=== PATIENT | female | born 1995 | race Caucasian/White ===

== ENCOUNTER 2023-03-09 22:04 | Emergency (ER) | payer SELFPAY ==
--- OUTSIDE RECORDS SUMMARY | 2023-03-09 22:07 | XMS REPORT | Continuity of Care Document ---
:1995 Author Organization [facility] t Address 1200 [facility] [address] [place] [id number] Care Team Providers Name Role Phone Juliana Knight Primary Care Physician [phone] KENYA RAMIREZ Attending Clinician Unavailable KENYA RAMIREZ Attending Clinician Unavailable Doctor Unassigned, [place] Attending Clinician Unavailable JULIANA HARRELL Attending Clinician Unavailable Yojana Ornelas Attending Clinician Unavailable Valentín Garcia DO Attending Clinician Zulema Dhali[facility] Attending Clinician Unavailable James Herrera MD Attending Clinician JAMES HERRERA Attending Clinician Unavailable Physician, No Primary or Family Admitting Clinician Unavaila ble Payers Payer Name Policy Type Policy Number Effective Date Expiration Date S tyrese BCBS OF [id number] [facility] [place]BS OF [place] [id number] 2021 00:00:00 Problems Condition Condition Condition Status Onset Resolution Last Treating Co mments Source Name Details Category Date Date Treatment Clinician Date Vaginal Vaginal Disease Active 2021-11 Univers bleeding bleeding 11-16 ity of 00:00: [place] 00 [facility] Unprotecte Unprotecte Disease Active 2021-11 U nivers d sexual d sexual 11-16 [place] [facility] Vaginal Vaginal Disease Active 2021-11 Univers discharge discharge 11-16 ity of 00:00: [place] 00 [facility] Screening Screening Disease Active 2021-11 Uni vers declined declined 11-16 [place] [facility] Morbid Morbid Disease Active Univers obesity obesity 17 [place] of [place] body [place] mass [place] mass index 00 Me dical of of Branch 40.0-49.9 40.0-49.9 Morbid Morbid Disease Active Univers obesity obesity 717 [place] of with body [place] mass index mass index 00 Me dical of of Branch 40.0-49.9 40.0-49.9 Allergies, Adverse Reactions, Alerts Allergy Allergy Status Severity Reaction(s) Onset Inactive Treating Comm ents Source Name Type Date Date Clinician No Known DA Active U [facility] Allergie -24 [place] [facility] 00:[facility]: d 00 [facility] No Known DA Active U [facility] Allergie 7-24 [place] 00:00: d 00 Medical Buna NO KNOWN Drug Active Univers ALLERGIE Class ity of S [facility] Social History Social Habit Start Date Stop Date Quantity Comments Source Exposure to 2022-09-06 2022-09-16 Not sure University SARS-CoV-2 00:00:00 12:52:00 [facility] (event) [place] Alcohol intake 2022-09-16 2022-09-16 Current drinker of Un iversity of 00:00:00 00:00:00 alcohol (finding) [facility] edical [place] Tobacco use and 2022-09-16 2022-09-16 Smokeless tobacco Un iversity of exposure 00:00:00 00:00:00 non-user [facility] Alcohol Comment 2020-05-24 2020-05-24 occasional Universit y of 00:00:00 00:00:00 [facility] Sex Assigned At [birth year] Universit y of 00:00:00 00:00:00 [place] [facility] Smoking Status Start Date Stop Date Source Never smoked tobacco [facility] Medications Ordered Filled Start Stop Current Ordering Indication Dosage Frequency Signature Comments Components Source Medication Medication Date Date Medication? Clinician (SIG) Name Name metroNIDAZO 2020-0 Yes 500mg Take 500 U nivers LE 500 mg 7-17 mg by ity of tablet 16:09: mouth [place] 37 every 8 Medical (eight) Branch hours. doxycycline 2020-0 Yes 100mg Take 100 U nivers 100 mg 7-17 mg by ity of capsule 16:09: mouth 2 [place] 37 (two) Medical times Branch daily. metroNIDAZO 2020-0 Yes 500mg Take 500 U nivers LE 500 mg 7-17 mg by ity of tablet 16:09: mouth [place] 37 every 8 Medical (eight) Branch hours. doxycycline 2020-0 Yes 100mg Take 100 U nivers 100 mg 7-17 mg by ity of capsule 16:09: mouth 2 [place] [address] (two) Medical times Branch daily. metroNIDAZO 2020-0 Yes 500mg Take 500 U nivers LE 500 mg 7-17 mg by ity of tablet 16:09: mouth [place] 37 every 8 Medical (eight) Branch hours. doxycycline 2020-0 Yes 100mg Take 100 U nivers 100 mg 7-17 mg by ity of capsule 16:09: mouth 2 [place] 37 (two) Medical times Branch daily. metroNIDAZO 2020-0 Yes 500mg Take 500 U nivers LE 500 mg 7-17 mg by ity of tablet 16:09: mouth [place] 37 every 8 Medical (eight) Branch hours. doxycycline 2020-0 Yes 100mg Take 100 U nivers 100 mg 7-17 mg by ity of capsule 16:09: mouth 2 [place] [address] (two) Medical times Branch daily. metroNIDAZO 2020-0 Yes 500mg Take 500 U nivers LE 500 mg 7-17 mg by ity of tablet 16:09: mouth [place] 37 every 8 Medical (eight) Branch hours. doxycycline 2020-0 Yes 100mg Take 100 U nivers 100 mg 7-17 mg by ity of capsule 16:09: mouth 2 [place] 37 (two) Medical times Branch daily. metroNIDAZO 2020-0 Yes 500mg Take 500 U nivers LE 500 mg 7-17 mg by ity of tablet 16:09: mouth [place] 37 every 8 Medical (eight) Branch hours. doxycycline 2020-0 Yes 100mg Take 100 U nivers 100 mg 7-17 mg by ity of capsule 16:09: mouth 2 [place] 37 (two) Medical times Branch daily. metroNIDAZO 2020-0 Yes 500mg Take 500 U nivers LE 500 mg 7-17 mg by ity of tablet 16:09: mouth [place] 37 every 8 Medical (eight) Branch hours. doxycycline 2020-0 Yes 100mg Take 100 U nivers 100 mg 7-17 mg by ity of capsule 16:09: mouth 2 [place] 37 (two) Medical times Branch daily. metroNIDAZO 2020-0 Yes 500mg Take 500 U nivers LE 500 mg 7-17 mg by ity of tablet 16:09: mouth [place] 37 every 8 Medical (eight) Branch hours. doxycycline 2020-0 Yes 100mg Take 100 U nivers 100 mg 7-17 mg by ity of capsule 16:09: mouth 2 [place] [address] (two) Medical times Branch daily. metroNIDAZO 2020-0 Yes 500mg Take 500 U nivers LE 500 mg 7-17 mg by ity of tablet 16:09: mouth [place] 37 every 8 Medical (eight) Branch hours. doxycycline 2020-0 Yes 100mg Take 100 U nivers 100 mg 7-17 mg by ity of capsule 16:09: mouth [address] [place] [address] (two) Medical times Branch daily. metroNIDAZO 2020-0 Yes 500mg Take 500 U nivers LE 500 mg 7-17 mg by ity of tablet 16:09: mouth [place] 37 every 8 Medical (eight) Branch hours. doxycycline 2020-0 Yes 100mg Take 100 U nivers 100 mg 7-17 mg by ity of capsule 16:09: mouth [address] [place] [address] (two) Medical times Branch daily. doxycycline 2020-0 Yes 100mg Take 100 U nivers 100 mg 7-17 mg by ity of capsule 11:09: mouth 2 [place] [address] (two) Medical times Branch daily. metroNIDAZO 2020-0 Yes 500mg Take 500 U nivers LE 500 mg 7-17 mg by ity of tablet 11:09: mouth [place] 37 every 8 Medical (eight) Branch hours. doxycycline 2020-0 Yes 100mg Take 100 U nivers 100 mg 7-17 mg by ity of capsule 11:09: mouth 2 [place] 37 (two) Medical times Branch daily. metroNIDAZO 2020-0 Yes 500mg Take 500 U nivers LE 500 mg 7-17 mg by ity of tablet 11:09: mouth [place] 37 every 8 Medical (eight) Branch hours. doxycycline 2020-0 Yes 100mg Take 100 U nivers 100 mg 7-17 mg by ity of capsule 11:09: mouth 2 37 (two) Medical times Branch daily. metroNIDAZO 2020-0 Yes 500mg Take 500 U nivers LE 500 mg 7-17 mg by ity of tablet 11:09: mouth [place] 37 every 8 Medical (eight) Branch hours. doxycycline 2020-0 Yes 100mg Take 100 U nivers 100 mg 7-17 mg by ity of capsule 11:09: mouth 2 37 (two) Medical times Branch daily. metroNIDAZO 2020-0 Yes 500mg Take 500 U nivers LE 500 mg 7-17 mg by ity of tablet 11:09: mouth [place] 37 every 8 Medical (eight) Branch hours. metroNIDAZO 2020-0 Yes [id number] 500mg Take 1 Univers LE 500 mg 7-17 tablet by ity o f tablet 00:00: mouth 2 00 (two) Medical times Branch daily. metroNIDAZO 2020-0 Yes [id number] 500mg Take 1 Univers LE 500 mg 7-17 tablet by ity o f tablet 00:00: mouth 2 (two) Medical times Branch daily. metroNIDAZO 2020-0 Yes [id number] 500mg Take 1 Univers LE 500 mg 7-17 tablet by ity o f tablet 00:00: mouth 2 (two) Medical times Branch daily. metroNIDAZO 2020-0 Yes [id number] 500mg Take 1 Univers LE 500 mg 7-17 tablet by ity o f tablet 00:00: mouth 2 00 (two) Medical times Branch daily. metroNIDAZO 2020-0 Yes [id number] 500mg Take 1 Univers LE 500 mg 7-17 tablet by ity o f tablet 00:00: mouth 2 00 (two) Medical times Branch daily. metroNIDAZO 2020-0 Yes [id number] 500mg Take 1 Univers LE 500 mg 7-17 tablet by ity o f tablet 00:00: mouth 2 [place] 00 (two) Medical times Branch daily. metroNIDAZO 2020-0 Yes [id number] 500mg Take 1 Univers LE 500 mg 7-17 tablet by ity o f tablet 00:00: mouth 2 [place] 00 (two) Medical times Branch daily. metroNIDAZO 2020-0 Yes [id number] 500mg Take 1 Univers LE 500 mg 7-17 tablet by ity o f tablet 00:00: mouth 2 [place] 00 (two) Medical times Branch daily. metroNIDAZO 2020-0 Yes [id number] 500mg Take 1 Univers LE 500 mg 7-17 tablet by ity o f tablet 00:00: mouth 2 [place] 00 (two) Medical times Branch daily. metroNIDAZO 2020-0 Yes [id number] 500mg Take 1 Univers LE 500 mg 7-17 tablet by ity o f tablet 00:00: mouth 2 [place] 00 (two) Medical times Branch daily. metroNIDAZO 2020-0 Yes [id number] 500mg Take 1 Univers LE 500 mg 7-17 tablet by ity o f tablet 00:00: mouth 2 00 (two) Medical times Branch daily. metroNIDAZO 2020-0 Yes [id number] 500mg Take 1 Univers LE 500 mg 7-17 tablet by ity o f tablet 00:00: mouth 2 00 (two) Medical times Branch daily. metroNIDAZO 2020-0 Yes [id number] 500mg Take 1 Univers LE 500 mg 7-17 tablet by ity o f tablet 00:00: mouth 2 00 (two) Medical times Branch daily. metroNIDAZO 2020-0 Yes [id number] 500mg Take 1 Univers LE 500 mg 7-17 tablet by ity o f tablet 00:00: mouth 2 00 (two) Medical times Branch daily. acetaminoph Yes 1{tbl} Take 1 Un [place] en-codeine 9-11 tablet by ity of (TYLENOL-CO 00:00: mouth [place] DEINE #3) 00 every 6 Medical 300-30 mg (six) Branch tablet hours as needed for Pain (scale 4-6) (for cough). acetaminoph Yes 1{tbl} Take 1 Un [place] en-codeine 9-11 tablet by ity of (TYLENOL-CO 00:00: mouth [place] DEINE #3) 00 every 6 Medical 300-30 mg (six) Branch tablet hours as needed for Pain (scale 4-6) (for cough). acetaminoph Yes 1{tbl} Take 1 Un [place] en-codeine 9-11 tablet by ity of (TYLENOL-CO 00:00: mouth [place] DEINE #3) 00 every 6 Medical 300-30 mg (six) Branch tablet hours as needed for Pain (scale 4-6) (for cough). acetaminoph Yes 1{tbl} Take 1 Un [place] en-codeine 9-11 tablet by ity of (TYLENOL-CO 00:00: mouth [place] DEINE #3) 00 every 6 Medical 300-30 mg (six) Branch tablet hours as needed for Pain (scale 4-6) (for cough). acetaminoph Yes 1{tbl} Take 1 Un [place] en-codeine 9-11 tablet by ity of (TYLENOL-CO 00:00: mouth [place] DEINE #3) 00 every 6 Medical 300-30 mg (six) Branch tablet hours as needed for Pain (scale 4-6) (for cough). acetaminoph Yes 1{tbl} Take 1 Un [place] en-codeine 9-11 tablet by ity of (TYLENOL-CO 00:00: mouth [place] DEINE #3) 00 every 6 Medical 300-30 mg (six) Branch tablet hours as needed for Pain (scale 4-6) (for cough). acetaminoph Yes 1{tbl} Take 1 Un [place] en-codeine 9-11 tablet by ity of (TYLENOL-CO 00:00: mouth [place] DEINE #3) 00 every 6 Medical 300-30 mg (six) Branch tablet hours as needed for Pain (scale 4-6) (for cough). acetaminoph Yes 1{tbl} Take 1 Un [place] en-codeine 9-11 tablet by ity of (TYLENOL-CO 00:00: mouth [place] DEINE #3) 00 every 6 Medical 300-30 mg (six) Branch tablet hours as needed for Pain (scale 4-6) (for cough). acetaminoph Yes 1{tbl} Take 1 Un [place] en-codeine 9-11 tablet by ity of (TYLENOL-CO 00:00: mouth [place] DEINE #3) 00 every 6 Medical 300-30 mg (six) Branch tablet hours as needed for Pain (scale 4-6) (for cough). acetaminoph Yes 1{tbl} Take 1 Un [place] en-codeine 9-11 tablet by ity of (TYLENOL-CO 00:00: mouth [place] DEINE #3) 00 every 6 Medical 300-30 mg (six) Branch tablet hours as needed for Pain (scale 4-6) (for cough). acetaminoph Yes 1{tbl} Take 1 Un [place] en-codeine 9-11 tablet by ity of (TYLENOL-CO 00:00: mouth [place] DEINE #3) 00 every 6 Medical 300-30 mg (six) Branch tablet hours as needed for Pain (scale 4-6) (for cough). acetaminoph Yes 1{tbl} Take 1 Un [place] en-codeine 9-11 tablet by ity of (TYLENOL-CO 00:00: mouth [place] DEINE #3) 00 every 6 Medical 300-30 mg (six) Branch tablet hours as needed for Pain (scale 4-6) (for cough). acetaminoph Yes 1{tbl} Take 1 Un [place] en-codeine 9-11 tablet by ity of (TYLENOL-CO 00:00: mouth [place] DEINE #3) 00 every 6 Medical 300-30 mg (six) Branch tablet hours as needed for Pain (scale 4-6) (for cough). acetaminoph Yes 1{tbl} Take 1 Un [place] en-codeine 9-11 tablet by ity of (TYLENOL-CO 00:00: mouth [place] DEINE #3) 00 every 6 Medical 300-30 mg (six) Branch tablet hours as needed for Pain (scale 4-6) (for cough). Vital Signs Vital Name Observation Time Observation Value Comments Source Systolic blood 2022-09-16 19:24:00 101 mm[Hg[facility] Diastolic blood 2022-09-16 19:24:00 68 mm[Hg] Unive [facility] Heart rate 2022-09-16 19:24:00 93 /min [facility] Body temperature 2022-09-16 19:24:00 36.78 Lakshmi [facility] Respiratory rate 2022-09-16 19:24:00 16 /min [facility] Body height 2022-09-16 19:24:00 175.3 cm [facility] Body weight 2022-09-16 19:24:00 119.84 kg Universi ty [facility] BMI 2022-09-16 19:24:00 39.02 kg/m2 Universi [facility] Oxygen saturation in 2022-09-16 19:24:00 97 /min [facility] Arterial blood by [facility] Pulse oximetry Branch Systolic blood 2020-05-24 16:08:00 133 mm[Hg] Univer sity of pressure [facility] Diastolic blood 2020-05-24 16:08:00 79 mm[Hg] [facility] 2020-05-24 16:08:00 95 /min Universi ty [facility] Body temperature 2020-05-24 16:08:00 36.94 Lakshmi [facility] Body height 2020-05-24 16:08:00 175.3 cm Universi [facility] Body weight 2020-05-24 16:08:00 123.378 kg Universi ty [facility] BMI 2020-05-24 16:08:00 40.17 kg/m2 [facility] Procedures Procedure Date / Time Performing Clinician Source Performed ASSIGNMENT OF BENEFITS 2022-09-16 18:55:59 Doctor Unassigned, No [facility] Name [facility] HEPATITIS B SURFACE 2020-05-24 16:54:00 James Herrera [facility] ANTIGEN [facility] HCV ANTIBODY 2020-05-24 16:54:00 James Herrera [facility] HSV 1 AND 2 2020-05-24 16:54:00 James Herrera [facility] GLYCOPROTEIN G IGG Medical Bran h HIV 1/2 AG-AB WITH 2020-05-24 16:54:00 James Herrera [facility] REFLEX [facility] GALV ONLY - SYPHILIS 2020-05-24 16:54:00 [facility] Branch GC & CHLAMYDIA 2020-05-24 16:38:00 James Herrera [facility] AMPLIFIED ASSAY [facility] GALV ONLY - VAGINAL 2020-05-24 16:38:00 James Herrera [facility] PATHOGENS BY DNA PROBE Medical B ahmet Plan of Care Planned Activity Planned Date Details Comments Source Goal Plan of Care Note [code = 50991-6] Encounters Start End Encounter Admission Attending Care Care Encounter Source Date/Time Date/Time Type Type Clinicians Facility Department ID 2023-01-02 Outpatient [facility] [id number] [place] 13:39:13 [id number] [facility] 2021-08-24 Outpatient [facility] [id number] [place] 15:49:16 [id number] [facility] 2022-12-31 2022-12-31 Outpatient R KENYA RAMIREZ [facility] B [id number] Univers 15:00:00 15:00:00 KENYA RAMIREZ [facility] 2022-09-22 2022-09-22 [address] [facility] [id number] Univers 00:00:00 00:00:00 [place] [id number] it y of PEDIATRIC [place]2.[place] [facility] [id number] [address] 2022-09-16 2022-09-16 [facility] [id number] Univers 13:00:00 13:40:49 Visit [place] [id number] it y of WOMEN'S 4.2.7.2.686 [facility] [id number] [place] [address] Branch 2022-09-16 2022-09-16 Outpatient R KENYA RAMIREZ [facility] B [id number] Univers 13:00:00 13:40:49 KENYA RAMIREZ [facility] 2022-09-16 2022-09-16 Orders Doctor JORDAN [id number] Univers 00:00:00 00:00:00 Only Unassigned, MIKKI [id number] ity [address] [place] [facility] 4.2.7.2.686 [place] [id number] [place] [address] Branch 2022-08-25 2022-08-25 Outpatient THAO OSUNA [id number] [place] 18:15:28 18:15:28 1018 F Julian 2022-08-25 2022-08-25 Outpatient [id number] 00:00:00 00:00:00 Visit [id number] 2022-06-09 2022-06-09 Outpatient R SHARRI [facility] [id number] Univers 08:30:00 08:30:00 JULIANA lerma [facility] 2022-02-18 2022-02-18 Outpatient R KENYA RAMIREZ [facility] B [id number] Univers 15:00:00 15:00:00 KENYA RAMIREZ [facility] 2021-05-31 2021-05-31 Emergency EM Johnson [facility] [id number] [facility] 15:31:00 15:43:00 Yojana 27 [facility] 2021-01-28 2021-01-28 [facility] [id number] 00:00:00 00:00:00 Outreach Valentín PRIMARY [id number] [place] [facility] 4.2.7.2.686 PAVILLION [id number] [facility] 2021-01-28 2021-01-28 [facility] [id number] Univers 00:00:00 00:00:00 Outreach Valentín PRIMARY [id number] i ty of [place].686 [place] [id number] [address] 2020-05-24 2020-06-04 [place] [facility] Draw, [facility] [id number] [id number] 11:37:01 16:08:07 Visit [facility] [id number] [place] 4.2.7.2.686 [place] [id number] [place] [address] Office Building 2020-05-24 2020-06-04 [place] [facility] Draw, [facility] 1.2.8 [id number] [facility] 11:37:01 16:08:07 Visit James Herrerah Health 350.1.13. 10 ity of [place].2.686 [place] [id number] [address] Office Building 2020-05-28 2020-05-28 Telephone Javier [facility] [id number] Univers 00:00:00 00:00:00 [facility] [id number] it y of [place].2.686 [place] [id number] [address] Office Building 2020-05-24 2020-05-24 Office [facility] [id number] Univers 10:52:52 11:39:01 Visit [facility] [id number] it y of [place].2.[place] [id number] [address] Office Building 2020-05-24 2020-05-24 [facility] [id number] Univers 10:45:00 10:45:00 [facility] Results Test Description Test Time Test Comments Results Result Comments Source GC & CHLAMYDIA AMPLIFIED ASSAY 2020-05-27 19:01:00 Test Item Value Reference Range Interpretation Comme nts C. trachomatis Nucleic Acid (test code = 10219-3) Negative Nega tive N. gonorrhoeae Nucleic Acid (test code = 03192-1) Negative Nega tive Lab Interpretation (test code = 78893-5) [facility] [id number] 16:43:00 Test Item Value Reference Range Interpretation Comments Syphilis IgG/IgM (test Non-reactive Non-reactive code = 92239-5) PATRICIO (test code = PATRICIO) Non-reactive - No serologic evidence of T. pallidum infection. Cannot exclude incubating or early syphilis. Submit a second specimen in 2-4 weeks if syphilis is clinically suspected. Equivocal - Further testing to follow. Reactive - Further testing to follow. Lab Interpretation (test Normal code = 23798-1) [facility] AND 2 GLYCOPROTEIN G [id number] 16:42:00 Test Item Value Reference Range Interpretation Comments HSV I IgG (test code Negative Negative = 7510049728) HSV II IgG (test code Negative Negative = 9450348906) PATRICIO (test code = PATRICIO) Positive - IgG antibody to HSV 1 and/or HSV 2 detected.Negative - No HSV 1 and/or HSV 2 antibody detected.Equivocal - A second sample should be sent. [facility] - VAGINAL PATHOGENS BY DNA PROBE 2020-05-25 20:30:00 Test Item Value Reference Range Interpretation Comments Trichomonas vaginalis Negative Negative (test code = 8095568141) Gardnerella vaginalis Positive Negative A The pr esence of (test code = 4251890980) Gar dnerella vaginalis although sugges tive, is not diagnost ic of Bacterial Vagin osis. Mercedes species (test Negative Negative code = 0684999967) Lab Interpretation (test Abnormal code = 61393-7) [facility] [id number] 21:42:00 Test Item Value Reference Range Interpretation Comments HCV Ab (test code = 20636-5) Negative HCV Semi-Quantitative (test code = 38624-5) [facility] AG-AB WITH [id number] 19:19:00 Test Item Value Reference Range Interpretation Comments HIV Negative Negative Semi-quantitative (test code = 35029-9) PATRICIO (test code = Non-reactive for HIV-1 PATRICIO) antigen and HIV-1/HIV-2 antibodies. ?No laboratory evidence of HIV infection. ?Repeat in 2-4 weeks if acute HIV infection is suspected. [facility] SURFACE [id number] 18:58:00 Test Item Value Reference Range Interpretation Comments HBsAg Semi-Quantitative (test code = Negative Negative 5195-3) [facility]
[2023-03-09] MEDS ORDERED: BUPIVACAINE 0.5% PF 10 ML VIAL ONE (22:20)
--- NOTE | 2023-03-09 23:07 | ER ---
Nurse's Notes [facility] Name: Gretchen Andrew Age: 28 yrs Sex: Female : 1995 Arrival Date: 03/09/2023 Time: 22:04 Bed 12 Private MD: Diagnosis: Fingertip Avulsion Presentation: 03/09 22:50 Chief complaint: Patient states: "I cut my finger on one of those things you cut your vc1 vegetables with.". Coronavirus screen: Vaccine status: Patient reports being unvaccinated. Client denies travel out of the [place] in the last 14 days. At this time, the client does not indicate any symptoms associated with coronavirus-19. Ebola Screen: Patient negative for fever greater than or equal to 101.5 degrees Fahrenheit, and additional compatible Ebola Virus Disease symptoms Patient denies exposure to infectious person. Patient denies travel to an Ebola-affected area in the 21 days before illness onset. No symptoms or risks identified at this time. Risk Assessment: Do you want to hurt yourself or someone else? Patient reports no desire to harm self or others. Onset of symptoms was March 09, 2023 at 21:50. 22:50 Method Of Arrival: Ambulatory vc1 22:50 Acuity: MARNIE 4 vc1 22:50 Initial Sepsis Screen: Does the patient meet any 2 criteria? No. Patient's initial vc1 sepsis screen is negative. Does the patient have a suspected source of infection? No. Patient's initial sepsis screen is negative. Triage Assessment: 23:52 General: Appears in no apparent distress. comfortable, Behavior is calm, cooperative, vc1 appropriate for age. Pain: Complains of pain in right index fingernail Pain does not radiate. EENT: No deficits noted. No signs and/or symptoms were reported regarding the EENT system. Neuro: Level of Consciousness is awake, alert, obeys commands, Oriented to person, place, time, situation, Appropriate for age. Cardiovascular: No deficits noted. Respiratory: Airway is patent Respiratory effort is even, unlabored, Respiratory pattern is regular, symmetrical. GI: No deficits noted. No signs and/or symptoms were reported involving the gastrointestinal system. : No deficits noted. No signs and/or symptoms were reported regarding the genitourinary system. Derm: No deficits noted. No signs and/or symptoms reported regarding the dermatologic system. Musculoskeletal: No deficits noted. No signs and/or symptoms reported regarding the musculoskeletal system. 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 Last tetanus immunization: unknown. - Social history:: Smoking status: Patient reports the use of cigarette tobacco products, denies chronic smoking, but will smoke occasionally, Reported history of juuling and/or vaping. Screenin:52 Abuse screen: Denies threats or abuse. Nutritional screening: On. Tuberculosis vc1 screening: No symptoms or risk factors identified. 23:55 [facility] ED Fall Risk Assessment (Adult) History of falling in the last 3 months, vc1 including since admission No falls in past 3 months (0 pts) Confusion or Disorientation No (0 pts) Intoxicated or Sedated No (0 pts) Impaired Gait No (0 pts) Mobility Assist Device Used No (0 pt) Altered Elimination No (0 pt) Score/Fall Risk Level 0 - 2 = Low Risk Oriented to surroundings, Maintained a safe environment, Educated pt \\T\\ family on fall prevention, incl call for assistance when getting out of bed. Vital Signs: 22:50 Weight 108.86 kg; Height 5 ft. 9 in. ; Pain 8/10; vc1 22:53 BP 105 / 89; Pulse 68; Temp 98.5; Pulse Ox 100% ; vc1 22:50 Body Mass Index 35.44 (108.86 kg, 175.26 cm) vc1 22:50 Pain Scale: Adult vc1 ED Course: 22:06 Patient arrived in ED. mr 22:[address] PA is PHCP. jmm 22:07 Ravinder Barker MD is Attending Physician. jmm 22:51 Triage completed. vc1 22:52 Arm band placed on left wrist. vc1 23:06 Jackson Kumar MD is Referral Physician. jmm 23:54 No provider procedures requiring assistance completed. Patient did not have IV access vc1 during this emergency room visit. Administered Medications: 22:55 Drug: Bupivacaine Infiltration (0.5 %) 10 ml Volume: 10 ml; Route: Infiltration; vc1 23:52 Drug: Tetanus-Diphtheria Toxoid IM Adult 0.5 ml {Oncology Technician: [employer]. Exp: cg 05/27/2023. Lot #: [id number]. } Route: IM; Site: left deltoid; Medication: 22:53 VIS not applicable for this client. vc1 Outcome: 23:06 Discharge ordered by . carlitos 23:55 Discharged to home ambulatory. vc1 23:55 Condition: good 23:55 Discharge instructions given to patient, Instructed on discharge instructions, follow up and referral plans. medication usage, Demonstrated understanding of instructions, follow-up care, medications, Prescriptions given X 1. 23:56 Patient left the ED. vc1 Signatures: Benedicto Lane PA PA jmm Rivera, Mary mr Garcia, Cindy, RN RN Tania Norton RN RN vc1
--- NOTE | 2023-03-09 23:07 | EDPHYS ---
Physician Documentation [facility] Name: Gretchen Andrew Age: 28 yrs Sex: Female : 1995 Arrival Date: 03/09/2023 Time: 22:04 Bed 12 Private MD: ED Physician Ravinder Barker HPI: 03/09 22:08 This 28 yrs old Female presents to ER via Ambulatory with complaints of Finger jmm lacceration. 22:08 Onset: The symptoms/episode began/occurred acutely. Is a 28-year-old female with no jmm chronic medical conditions presents emerged department with a laceration to her right second index finger. Patient states she accidentally sliced it with a vegetable slicer. Unsure on tetanus immunization status. 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 Last tetanus immunization: unknown. - Social history:: Smoking status: Patient reports the use of cigarette tobacco products, denies chronic smoking, but will smoke occasionally, Reported history of juuling and/or vaping. ROS: 22:08 Constitutional: Negative for fever, chills, and weight loss, Cardiovascular: Negative jmm for chest pain, palpitations, and edema, Respiratory: Negative for shortness of breath, cough, wheezing, and pleuritic chest pain. 22:08 Skin: Positive for laceration(s). 22:08 All other systems are negative. Exam: 22:08 Constitutional: This is a well developed, well nourished patient who is awake, alert, jmm and in no acute distress. Head/Face: atraumatic. Eyes: EOMI, no conjunctival erythema appreciated ENT: Moist Mucus Membranes Neck: Trachea midline, Supple Chest/axilla: Normal chest wall appearance and motion. Cardiovascular: Regular rate and rhythm. No edema appreciated Respiratory: Normal respirations, no respiratory distress appreciated Abdomen/GI: Non distended Back: Normal ROM 22:08 Skin: Avulsion noted to the tip of the right second finger. 22:08 Neuro: Orientation: is normal, Mentation: is normal, Memory: is normal. 22:08 Psych: Behavior/mood is pleasant, cooperative. Vital Signs: 22:50 Weight 108.86 kg; Height 5 ft. 9 in. ; Pain 8/10; vc1 22:53 BP 105 / 89; Pulse 68; Temp 98.5; Pulse Ox 100% ; vc1 22:50 Body Mass Index 35.44 (108.86 kg, 175.26 cm) vc1 22:50 Pain Scale: Adult vc1 MDM: 22:08 Patient medically screened. jmm 23:43 Differential diagnosis: Avulsion. Data reviewed: vital signs, nurses notes. I melissam considered the following discharge prescriptions or medication management in the emergency department Medications were administered in the Emergency Department. See MAR. Counseling: I had a detailed discussion with the patient and/or guardian regarding: the historical points, exam findings, and any diagnostic results supporting the discharge/admit diagnosis, the need for outpatient follow up, to return to the emergency department if symptoms worsen or persist or if there are any questions or concerns that arise at home. Administered Medications: 22:55 Drug: Bupivacaine Infiltration (0.5 %) 10 ml Volume: 10 ml; Route: Infiltration; vc1 23:52 Drug: Tetanus-Diphtheria Toxoid IM Adult 0.5 ml {[employer]: [employer]. Exp: cg 05/27/2023. Lot #: [id number]. } Route: IM; Site: left deltoid; Disposition: 03/10 04:48 Co-signature as Attending Physician, Ravinder Barekr MD I reviewed the patient's care rt provided by the Advanced Practice Provider and agree with the diagnosis and treatment plan. Disposition Summary: 03/09/23 23:06 Discharge Ordered Location: Home [facility] Condition: Stable [facility] Diagnosis - Fingertip Avulsion [facility] Followup: [facility] - With: Jackson Kumar MD - When: 1 week - Reason: Recheck today's complaints, Continuance of care, Re-evaluation by your physician Discharge Instructions: - Discharge Summary Sheet [facility] - Deep Skin Avulsion [facility] Forms: - Medication Reconciliation Form [facility] - Thank You Letter m - Antibiotic Education jmm - Prescription Opioid Use [facility] Prescriptions: - Cephalexin 500 mg Oral Capsule - take 1 capsule by ORAL route every 6 hours for 5 days; 20 capsule; Refills: 0, [facility] Product Selection Permitted Signatures: Benedicto Lane PA PA jmm Garcia, Cindy, RN RN cg Tania Norton RN RN vc1 Ravinder Barker MD MD rt
[2023-03-09] MEDS ORDERED: TETANUS & DIPHTHERIA TOX,ADULT 0.5 ML VIAL ONE (23:53)
[2023-03-10 00:55] VITALS: BP 105/89; TEMP 98.5; O2SAT 100
== END 2023-03-09 23:56 | disposition home or self-care (01) ==
LOC: ER 22:04
DX: S61.210A Laceration without foreign body of right index finger without damage to nail, initial encounter (principal); F17.210 Nicotine dependence, cigarettes, uncomplicated; Z23 Encounter for immunization
CPT/HCPCS: 90471; 90714; 99284

== ENCOUNTER 2024-11-06 07:28 | Emergency (ER) | payer OTHER ==
--- OUTSIDE RECORDS SUMMARY | 2024-11-06 07:31 | XMS REPORT | Continuity of Care Document ---
Author Name Unknown Address [address] [facility] [address] [place] [address] [facility] thconnect Address [address] [facility] [address] [place] [address] Care Team Providers Care Certified Midwife Name Role Phone [facility] Juliana JOHNSTON Primary Care Physician [phone] Gregory Yoder MD Attending Clinician GREGORY YODER Attending Clinician GREGORY Galaviz Attending Clinician Karina Luciano Attending Clinician Unavailable Karina SKINNER Attending Clinician Unavailable Karina Rick Attending Clinician [phone] PHYLLIS ZAMBRANO Attending Clinician Unavailab le PHYLLIS ZAMBRANO Attending Clinician Unavailab le Phyllis Parekh Attending Clinician [phone] Doctor Unassigned, [place] Attending Clinician U navailable 2, [facility] Attending Clinician Unavailable JADEN GUTIÉRREZ Attending Clinician Unavailable Jaden Boateng Attending Clinician AUSTIN BONILLA Attending Clinician Unavailable AUSTIN BONILLA Attending Clinician Unavailable DANNA SPENCE Attending Clinician Unavailable DANNA SPENCE Attending Clinician Unavailable BONNIE LEIGH Attending Clinician Unavailable Dulce JOHNSTON, Bonnie Attending Clinician [phone] Unknown, Attending Attending Clinician Unavailab le [email or web address]_S Attending Clinician Unavaila ble TRITSCHLER, CHERYAL Attending Clinician Unavaila ble TRITSCHLER, CHERYAL Attending Clinician Unavaila JULIANA Lama Attending Clinician Unavailable Yojana Ornelas Attending Clinician Unavail able Valentín Garcia DO Attending Clinician [phone] Draw, Clc[facility] Lab Attending Clinician Unavailruth Herrera MD, James Duron Attending Clinician [phone] JAMES HERRERA Attending Clinician Unavail able [email or web address]_S Admitting Clinician Unavaila ble Physician, No Primary or Family Admitting Clinic timothy Unavailable Payers Payer Name Policy Type Policy Number Effective Date Expirati on Date Source [facility]-Medical [id number] [facility] [id number] 2021 00:00:00 Problems Condition Name Condition Details Condition Category Status Onset Date Resolution Date Last Treatment Date Treating Clinician Comments Source Vaginal bleeding Vaginal bleeding Disease Active 2021-11 00:00: 00 General acute hospital Unprotecte d sexual intercours e Unprotecte d sexual intercours e Disease Active 2021-11 00:00: 00 General acute hospital Vaginal discharge Vaginal discharge Disease Active 2021-11 00:00: 00 General acute hospital Screening declined by patient Screening declined by patient Disease Active 2021-11 00:00: 00 General acute hospital Morbid obesity with body mass index of 40.0-49.9 Morbid obesity with body mass index of 40.0-49.9 Disease Active 05-24 00:00: 00 General acute hospital Morbid obesity with body mass index of 40.0-49.9 Morbid obesity with body mass index of 40.0-49.9 Disease Active 05-24 00:00: 00 General acute hospital Allergies, Adverse Reactions, Alerts Allergy Name Allergy Type Status Severity Reaction(s) Onset Date Inactive Date Treating Clinician Comments Source No Known Allergie s DA Active U 05-31 00:00: 00 [facility] No Known Allergie s DA Active U 05-31 00:00: 00 [facility] NO KNOWN ALLERGIE S Drug Class Active General acute hospital Social History Social Habit Start Date Stop Date Quantity Comments Source Gender identity [facility] History of Social function 2024-10-10 00:00:00 2024-10-10 00:00:00 [facility] Alcoholic beverage intake 2024-10-10 00:00:00 2024-10-10 00:00:00 Current drinker of alcohol (finding) [facility] Alcohol intake 2024-01-18 00:00:00 2024-01-18 00:00:00 Current drinker of alcohol (finding) [facility] Exposure to SARS-CoV-2 (event) 2022-12-11 00:00:00 2022-12-21 16:26:00 Not sure [facility] Tobacco use and exposure 2022-09-16 00:00:00 2022-09-16 00:00:00 Smokeless tobacco non-user [facility] Alcohol Comment 2020-05-24 00:00:00 2020-05-24 00:00:00 occasional [facility] Sex assigned at 1995 00:00:00 1995 00:00:00 [facility] Smoking Status Start Date Stop Date Source Never smoked tobacco General acute hospital Medications Ordered Medication Name Filled Medication Name Start Date Stop Date Current Medication? Ordering Clinician Indication Dosage Frequency Signature (SIG) Comments Components Source docusate (COLACE) 100 mg capsule 2023-11 00:00: 00 Yes [id number] 100mg Take 1 capsule by mouth in the morning and 1 capsule in the evening. General acute hospital ibuprofen 800 mg tablet 2023-11 2 00:00: 00 Yes [id number] 800mg Take 1 tablet by mouth every 6 (six) hours as needed for Pain (scale 1-3) or Pain (scale 4-6). General acute hospital benzonatate 200 mg capsule 07-05 00:00: 00 Yes [id number] 200mg Take 1 capsule by mouth 3 (three) times daily as needed for Cough for up to 20 doses. General acute hospital ondansetron 4 mg disintegrat ing tablet 07-05 00:00: 00 Yes [id number] 4mg Take 1 tablet by mouth every 8 (eight) hours as needed for Nausea and Vomiting (N/V). General acute hospital benzonatate 100 mg capsule 07-02 00:00: 00 Yes [id number] 100mg Take 1 capsule by mouth 3 (three) times daily as needed for Cough. General acute hospital ondansetron 4 mg disintegrat ing tablet 07-02 00:00: 00 07-08 04:59 :00 No [id number] 4mg Take 1 tablet by mouth every 8 (eight) hours as needed for Nausea and Vomiting (N/V) for up to 5 days. General acute hospital valACYclovi r (VALTREX) 1 gram tablet 03-31 00:00: 00 Yes [id number] 1g Take 1 tablet by mouth in the morning and 1 tablet in the evening. General acute hospital fluticasone propionate 50 mcg/actuati on nasal spray 2022-11 00:00: 00 Yes [id number] 1{spray } Use 1 Chili in each nostril in the morning. General acute hospital benzonatate (TESSALON PERLES) 100 mg capsule 2022-11 00:00: 00 11-07 05:59 :00 No [id number] 100mg Take 1 capsule by mouth every 8 (eight) hours as needed for Cough for up to 7 days. General acute hospital metroNIDAZO LE (FLAGYL) 500 mg tablet 16 00:00: 00 Yes [id number] 500mg Take 1 tablet by mouth every 12 (twelve) hours. General acute hospital doxycycline 100 mg capsule 05-24 16:09: 37 Yes 100mg Take 100 mg by mouth 2 (two) times daily. General acute hospital metroNIDAZO LE 500 mg tablet 05-24 16:09: 37 Yes 500mg Take 500 mg by mouth every 8 (eight) hours. General acute hospital doxycycline 100 mg capsule 05-24 11:09: 37 Yes 100mg Take 100 mg by mouth 2 (two) times daily. General acute hospital metroNIDAZO LE 500 mg tablet 05-24 11:09: 37 Yes 500mg Take 500 mg by mouth every 8 (eight) hours. General acute hospital metroNIDAZO LE 500 mg tablet 05-24 00:00: 00 Yes [id number] 500mg Take 1 tablet by mouth 2 (two) times daily. General acute hospital acetaminoph en-codeine (TYLENOL-CO DEINE #3) 300-30 mg tablet 07-19 00:00: 00 Yes 1{tbl} Take 1 tablet by mouth every 6 (six) hours as needed for Pain (scale 4-6) (for cough). General acute hospital Vital Signs Vital Name Observation Time Observation Value Comments S addisnilsa Systolic blood pressure 2024-10-10 17:40:00 111 mm[Hg] [facility] Diastolic blood pressure 2024-10-10 17:40:00 75 mm[Hg] [facility] Heart rate 2024-10-10 17:40:00 75 /min [facility] Body temperature 2024-10-10 17:40:00 36.67 Lakshmi [facility] Respiratory rate 2024-10-10 17:40:00 18 /min [facility] Body height 2024-10-10 17:40:00 175.3 cm [facility] Body weight 2024-10-10 17:40:00 136.351 kg [facility] BMI 2024-10-10 17:40:00 44.39 kg/m2 [facility] Systolic blood pressure 2024-07-05 19:32:00 127 mm[Hg] [facility] Diastolic blood pressure 2024-07-05 19:32:00 97 mm[Hg] [facility] Heart rate 2024-07-05 19:32:00 100 /min Unive [facility] Body temperature 2024-07-05 19:32:00 37.39 Lakshmi [facility] Respiratory rate 2024-07-05 19:32:00 18 /min [facility] Body height 2024-07-05 19:32:00 175.3 cm [facility] Body weight 2024-07-05 19:32:00 131.543 kg [facility] BMI 2024-07-05 19:32:00 42.83 kg/m2 [facility] Oxygen saturation in Arterial blood by Pulse oximetry 2024-07-05 19:32:00 100 /min [facility] Systolic blood pressure 2024-07-03 02:46:00 135 mm[Hg] [facility] Diastolic blood pressure 2024-07-03 02:46:00 87 mm[Hg] [facility] Heart rate 2024-07-03 02:46:00 98 /min [facility] Body temperature 2024-07-03 02:46:00 37.39 Lakshmi [facility] Respiratory rate 2024-07-03 02:46:00 18 /min [facility] Body height 2024-07-03 02:46:00 175.3 cm [facility] Body weight 2024-07-03 02:46:00 131.543 kg [facility] BMI 2024-07-03 02:46:00 42.83 kg/m2 [facility] Oxygen saturation in Arterial blood by Pulse oximetry 2024-07-03 02:46:00 100 /min [facility] Systolic blood pressure 2024-03-31 18:46:00 118 mm[Hg] [facility] Diastolic blood pressure 2024-03-31 18:46:00 79 mm[Hg] [facility] Body temperature 2024-03-31 18:46:00 36.39 Lakshmi [facility] Body height 2024-03-31 18:46:00 175.3 cm [facility] Body weight 2024-03-31 18:46:00 127.461 kg [facility] BMI 2024-03-31 18:46:00 41.50 kg/m2 [facility] Systolic blood pressure 2024-03-29 02:49:38 131 mm[Hg] [facility] Diastolic blood pressure 2024-03-29 02:49:38 81 mm[Hg] [facility] Heart rate 2024-03-29 02:49:38 91 /min Unive [facility] Body temperature 2024-03-29 02:49:38 37.06 Lakshmi [facility] Respiratory rate 2024-03-29 02:49:38 20 /min [facility] Oxygen saturation in Arterial blood by Pulse oximetry 2024-03-29 02:49:38 97 /min [facility] Body height 2024-03-29 01:32:00 175.3 cm [facility] Body weight 2024-03-29 01:32:00 128.368 kg [facility] BMI 2024-03-29 01:32:00 41.79 kg/m2 [facility] Systolic blood pressure 2024-01-18 14:13:00 128 mm[Hg] [facility] Diastolic blood pressure 2024-01-18 14:13:00 80 mm[Hg] [facility] Heart rate 2024-01-18 14:13:00 80 /min Unive [facility] Body temperature 2024-01-18 14:13:00 36.89 Lakshmi [facility] Respiratory rate 2024-01-18 14:13:00 16 /min [facility] Body height 2024-01-18 14:13:00 175.3 cm [facility] Body weight 2024-01-18 14:13:00 128.368 kg [facility] BMI 2024-01-18 14:13:00 41.79 kg/m2 [facility] Oxygen saturation in Arterial blood by Pulse oximetry 2024-01-18 14:13:00 98 /min [facility] Systolic blood pressure 2023-10-31 01:17:00 114 mm[Hg] [facility] Diastolic blood pressure 2023-10-31 01:17:00 83 mm[Hg] [facility] Heart rate 2023-10-31 01:17:00 99 /min [facility] Body temperature 2023-10-31 01:17:00 37.28 Lakshmi [facility] Respiratory rate 2023-10-31 01:17:00 15 /min [facility] Body height 2023-10-31 01:17:00 175.3 cm [facility] Body weight 2023-10-31 01:17:00 122.074 kg [facility] BMI 2023-10-31 01:17:00 39.74 kg/m2 [facility] Oxygen saturation in Arterial blood by Pulse oximetry 2023-10-31 01:17:00 97 /min [facility] Systolic blood pressure 2023-07-22 14:53:00 111 mm[Hg] [facility] Diastolic blood pressure 2023-07-22 14:53:00 70 mm[Hg] [facility] Heart rate 2023-07-22 14:53:00 68 /min Unive [facility] Respiratory rate 2023-07-22 14:53:00 18 /min [facility] Body height 2023-07-22 14:53:00 175.3 cm [facility] Body weight 2023-07-22 14:53:00 116.121 kg [facility] BMI 2023-07-22 14:53:00 37.80 kg/m2 [facility] Systolic blood pressure 2022-09-16 19:24:00 101 mm[Hg] [facility] Diastolic blood pressure 2022-09-16 19:24:00 68 mm[Hg] [facility] Heart rate 2022-09-16 19:24:00 93 /min Unive [facility] Body temperature 2022-09-16 19:24:00 36.78 Lakshmi [facility] Respiratory rate 2022-09-16 19:24:00 16 /min [facility] Body height 2022-09-16 19:24:00 175.3 cm [facility] Body weight 2022-09-16 19:24:00 119.84 kg [facility] BMI 2022-09-16 19:24:00 39.02 kg/m2 [facility] Oxygen saturation in Arterial blood by Pulse oximetry 2022-09-16 19:24:00 97 /min [facility] Systolic blood pressure 2020-05-24 16:08:00 133 mm[Hg] [facility] Diastolic blood pressure 2020-05-24 16:08:00 79 mm[Hg] [facility] Heart rate 2020-05-24 16:08:00 95 /min [facility] Body temperature 2020-05-24 16:08:00 36.94 Lakshmi [facility] Body height 2020-05-24 16:08:00 175.3 cm [facility] Body weight 2020-05-24 16:08:00 123.378 kg [facility] BMI 2020-05-24 16:08:00 40.17 kg/m2 [facility] Procedures Procedure Date / Time Performed Performing Clinician Source URINALYSIS 2024-03-29 01:48:00 Jaden Gutiérrez [facility] RAPID STREP SCREEN FOR GROUP A 2024-03-29 01:48:00 Jaden Gutiérrez [facility] RAPID INFLUENZA A/B 2024-03-29 01:48:00 Therese Gutiérrez [facility] COVID-19 (ID NOW RAPID TESTING) 2024-03-29 01:48:00 Jaden Gutiérrez [facility] POCT SARS-COV-2 ANTIGEN (BINAX NOW) 2023-10-31 01:36:00 Bonnie Leigh [facility] POCT MOLECULAR FLU 2023-10-31 01:26:00 Unknown, Attend [facility] POCT MOLECULAR STREP 2023-10-31 01:23:00 Unknown, Atte anthonying [facility] CONSENT/REFUSAL FOR DIAGNOSIS AND TREATMENT 2023-10-31 01:12:02 Doctor Unassigned, [place] [facility] ASSIGNMENT OF BENEFITS 2023-10-31 01:11:19 Docjennifer r Unassigned, [place] [facility] PATIENT FINANCIAL POLICY 2023-07-22 14:38:56 Doctor Unassigned, [place] [facility] POCT URINALYSIS W/O SPECIFIC GRAVITY 2023-07-22 00:00:00 Gregory Yoder [facility] ASSIGNMENT OF BENEFITS 2022-09-16 18:55:59 Yessenia r Unassigned, [place] [facility] HEPATITIS B SURFACE ANTIGEN 2020-05-24 16:54:00 James Herrera [facility] HCV ANTIBODY 2020-05-24 16:54:00 James Herrera [facility] HSV 1 AND 2 GLYCOPROTEIN G IGG 2020-05-24 16:54:00 James Herrera [facility] HIV 1/2 AG-AB WITH REFLEX 2020-05-24 16:54:00 James Hrerera [facility] GALV ONLY - SYPHILIS IGG/IGM 2020-05-24 16:54:00 James Herrera [facility] GC & CHLAMYDIA AMPLIFIED ASSAY 2020-05-24 16:38:00 Becki Ramirez [facility] GALV ONLY - VAGINAL PATHOGENS BY DNA PROBE 2020-05-24 16:38:00 James Herrera [facility] Plan of Care Planned Activity Planned Date Details Comments Source Goal Plan of Care Note [code = 90927-2] Encounters Start Date/Time End Date/Time Encounter Type Admission Type Attending Clinicians Care Facility Care Department Encounter ID Source 2023-01-02 13:39:13 Outpatient [facility] [id number] [facility] 2021-08-24 15:49:16 Outpatient [facility] [id number] [facility] 2024-10-10 00:00:00 2024-10-10 12:22:44 Letter (Out) Monzon-Elvi s, [facility] 1.114 350.1.13.10 4.2.7.2.686 [id number] General acute hospital 2024-10-10 11:00:00 2024-10-10 12:21:44 Outpatient R SHAYLEE Horner, GREGORY SHAYLEE Horner, [facility] [id number] General acute hospital 2024-10-10 11:00:00 2024-10-10 12:21:44 Office Visit Ela Ferrissol [facility] 1.114 350.1.13.10 4.2.7.2.686 [id number] General acute hospital 2024-07-05 14:33:00 2024-07-05 15:14:00 Emergency X Karina SKINNER K [facility] [id number] General acute hospital 2024-07-05 14:33:00 2024-07-05 15:14:00 Emergency Karina Skinner [facility] ..114 350.1.13.10 4.2.7.2.686 [id number] General acute hospital 2024-07-02 21:50:00 2024-07-02 22:48:00 Emergency X PHYLLIS ZAMBRANO TASHA [facility] [id number] General acute hospital 2024-07-02 21:50:00 2024-07-02 22:48:00 Emergency Phyllis Zambrano [facility] ..114 350.1.13.10 4.2.7.2.686 [id number] General acute hospital 2024-04-04 00:00:00 2024-05-06 18:18:51 Patient Secure Msg Doctor Unassigned, [place] [facility] 1.2.840.114 350.1.13.10 4.2.7.2.686 [id number] General acute hospital 2024-04-21 09:00:00 2024-04-21 09:00:00 Outpatient R MONZON-ELVI S, GREGORY MONZON-ELVI S, GREGORY [facility] [id number] General acute hospital 2024-02-25 00:00:00 2024-04-01 18:10:50 Patient Secure Msg Doctor Unassigned, [place] [facility] 1.2.840.114 350.1.13.10 4.2.7.2.686 [id number] General acute hospital 2024-03-31 00:00:00 2024-03-31 15:49:31 Telephone Monzon-Elvi s, Gregory [facility] 1.2.840.114 350.1.13.10 4.2.7.2.686 [id number] General acute hospital 2024-03-31 14:30:00 2024-03-31 14:45:00 Pulverizing And Sifting Operator Visit 2, Adc Lab Monzon-Elvi s, Gregory [facility] 1.2.840.114 350.1.13.10 4.2.7.2.686 [id number] General acute hospital 2024-03-31 13:30:00 2024-03-31 14:11:58 Outpatient R MONZON-ELVI S, GREGORY MONZON-ELVI S, GREGORY [facility] [id number] General acute hospital 2024-03-31 13:30:00 2024-03-31 14:11:58 Office Visit Monzon-Elvi s, Gregory [facility] 1.2.840.114 350.1.13.10 4.2.7.2.686 [id number] General acute hospital 2024-03-28 20:34:00 2024-03-28 21:54:00 Emergency X JADEN GUTIÉRREZ [facility] [id number] General acute hospital 2024-03-28 20:34:00 2024-03-28 21:54:00 Emergency Jaden Gutiérrez [facility] 1.840.114 350.1.13.10 4.2.7.2.686 [id number] General acute hospital 2024-03-07 08:30:00 2024-03-07 08:30:00 Outpatient AUSTIN LEE PATRICK [facility] [id number] General acute hospital 2024-01-31 00:00:00 2024-01-31 00:00:00 Patient Secure Msg Doctor Unassigned, [place] [facility] 1..840.114 350.1.13.10 4.2.7.2.686 [id number] General acute hospital 2024-01-29 00:00:00 2024-01-29 00:00:00 Outpatient DANNA CAMILO NATHAN [facility] [id number] General acute hospital 2024-01-18 09:00:00 2024-01-18 09:50:36 Outpatient AUSTIN LEE PATRICK [facility] [id number] General acute hospital 2024-01-18 09:00:00 2024-01-18 09:50:36 Office Visit Isabel Austin [facility] 1.840.114 350.1.13.10 4.2.7.2.686 [id number] General acute hospital 2024-01-18 00:00:00 2024-01-18 00:00:00 Letter (Out) Isabel Austin [facility] 1..840.114 350.1.13.10 4.2.7.2.686 [id number] General acute hospital 2023-10-30 19:00:00 2023-10-30 19:56:46 Outpatient R BONNIE LEIGH [facility] [id number] General acute hospital 2023-10-30 19:00:00 2023-10-30 19:56:46 Urgent Care Bonnie Leigh Unknown, Attending [facility] 1..114 350.1.13.10 4.2.7.2.686 [id number] General acute hospital 2023-10-30 00:00:00 2023-10-30 00:00:00 Orders Only Doctor Unassigned, [place] [facility] 1.114 350.1.13.10 4.2.7.2.686 [id number] General acute hospital 2023-09-08 00:00:00 2023-09-08 00:00:00 Outpatient GC_GCBZW_Ka diyala_S [facility] [id number] [facility] 2023-07-24 00:00:00 2023-07-24 00:00:00 Case Management Gregory Ferris [facility] 1.114 350.1.13.10 4.2.7.2.686 [id number] General acute hospital 2023-07-22 09:45:00 2023-07-22 10:10:01 Outpatient R SHAYLEE SGREGORY GREGORY [facility] [id number] General acute hospital 2023-07-22 09:45:00 2023-07-22 10:10:01 Office Visit Gregory Ferris [facility] 1.114 350.1.13.10 4.2.7.2.686 [id number] General acute hospital 2023-07-22 00:00:00 2023-07-22 00:00:00 Orders Only Doctor Unassigned, [place] [facility] 1.2.840.114 350.1.13.10 4.2.7.2.686 [id number] General acute hospital 2022-12-31 15:00:00 2022-12-31 15:00:00 Outpatient R JEREMYKENYA [facility] [id number] hospital 2022-09-22 00:00:00 2022-09-22 00:00:00 [facility] 1.2.840.114 350.1.13.10 4.2.7.2.686 [id number] General acute hospital 2022-09-16 13:00:00 2022-09-16 13:40:49 Office Visit MyrandaKenya godinez [facility] 1.2.840.114 350.1.13.10 4.2.7.2.686 [id number] General acute hospital 2022-09-16 13:00:00 2022-09-16 13:40:49 Outpatient R MY[facility]AN[facility]KEN[facility] [id number] General acute hospital 2022-09-16 00:00:00 2022-09-16 00:00:00 Orders Only Doctor Unassigned, [place] [facility] 1.2.840.114 350.1.13.10 4.2.7.2.686 [id number] General acute hospital 2022-08-25 18:15:28 2022-08-25 18:15:28 Outpatient SFA [facility] [id number] Librado Jordan 2022-08-25 00:00:00 2022-08-25 00:00:00 Outpatient Visit [id number] 2022-06-09 08:30:00 2022-06-09 08:30:00 Outpatient R JULIANA HARRELL [facility] [id number] General acute hospital 2022-02-18 15:00:00 2022-02-18 15:00:00 Outpatient R KENYA RAMIREZ CHERYAL [facility] [id number] General acute hospital 2022-02-18 00:00:00 2022-02-18 00:00:00 Patient Secure Msg Doctor Unassigned, [place] [facility] 1..114 350.1.13.10 4.2.7.2.686 [id number] General acute hospital 2021-05-31 15:31:00 2021-05-31 15:43:00 Emergency EM Yojana Ornelas [facility] [id number] 2021-01-28 00:00:00 2021-01-28 00:00:00 Patient Outreach Valentín Garcia [facility] 1.84.114 350.1.13.10 4.2.7.2.686 [id number] 2021-01-28 00:00:00 2021-01-28 00:00:00 Patient Outreach Valentín Garcia [facility] 1.84.114 350.1.13.10 4.2.7.2.686 [id number] General acute hospital 2020-05-24 11:37:01 2020-06-04 16:08:07 Pulverizing And Sifting Operator Visit Draw, Clc-Bls Lab [facility] Office Building 1.84.114 350.1.13.10 4.2.7.2.686 [id number] 2020-05-24 11:37:01 2020-06-04 16:08:07 Pulverizing And Sifting Operator Visit Draw, Clc-Bls Lab James Herrera [facility] Office Building 1.2.840.114 350.1.13.10 4.2.7.2.686 [id number] General acute hospital 2020-05-28 00:00:00 2020-05-28 00:00:00 Telephone James Herrera [facility] Building 1.2.840.114 [id number] General acute hospital 2020-05-24 10:52:52 2020-05-24 11:39:01 Office Visit James Herrera [facility] [id number] General acute hospital 2020-05-24 10:45:00 2020-05-24 10:45:00 Outpatient R JAMES HERRERA [facility] [id number] General acute hospital Results Test Description Test Time Test Comments Results Result Co mments Source [facility] SARS-COV-2 ANTIGEN (BINAX NOW)2023-10-31 01:36:00* Test Item Value Reference Range Interpretation Comme nts POCT SARS-COV-2 ANTIGEN (veena t code = 71735-9) Not Detected Not Detected On board controls acceptable with C Line (test code = 3574) Yes Lab Interpretation (test cod e = 82308-8) Normal [facility] MOLECULAR [id number] 01:31:21* Test Item Value Reference Range Interpretation Comme nts POCT Molecular Strep (test c ode = 14159-9) Negative Negative Lab Interpretation (test cod e = 50776-8) Normal [facility] URINALYSIS W/O SPECIFIC [id number] 15:11:00* Test Item Value Reference Range Interpretation Comme nts POCT PH U (test code = 3254) 7 mg/dl 5-8 POCT U LEUK EST (test code = 3263) Negative Negative - Negative POCT U NIT (test code = 3262) Negative Negative - Negati ve POCT U PROT (test code = 3259) Negative Negative - Negat micaela POCT U GLU (test code = 3256) Negative Negative - Negati ve POCT U KETONE (test code = 3258) Negative Negative - Neg ative POCT U BLD (test code = 3257) Negative Negative - Negati ve [facility] SPECIFIC [id number] 15:11:00* Test Item Value Reference Range Interpretation Comme nts POCT PH U (test code = 3254) 7 mg/dl 5-8 POCT U LEUK EST (test code = 3263) Negative Negative - Negative POCT U NIT (test code = 3262) Negative Negative - Negati ve POCT U PROT (test code = 3259) Negative Negative - Negat micaela POCT U GLU (test code = 3256) Negative Negative - Negati ve POCT U KETONE (test code = 3258) Negative Negative - Neg ative POCT U BLD (test code = 3257) Negative Negative - Negati ve [facility] & CHLAMYDIA AMPLIFIED [id number] 19:01:00* Test Item Value Reference Range Interpretation Comme nts C. trachomatis Nucleic Acid (test code = 90312-4) Negative Negative N. gonorrhoeae Nucleic Acid (test code = 54014-8) Negative Negative Lab Interpretation (test cod e = 62491-5) Normal [facility] - SYPHILIS [id number] 16:43:00* Test Item Value Reference Range Interpretation Comme nts Syphilis IgG/IgM (test code = 90065-3) Non-reactive Non-reactive PATRICIO (test code = PATRICIO) Non-reactive - No serologic evidence of T. pallidum infection. Cannot exclude incubating or early syphilis. Submit a second specimen in 2-4 weeks if syphilis is clinically suspected. Equivocal - Further testing to follow. Reactive - Further testing to follow. Lab Interpretation (test code = 21801-0) Normal [facility] 2 GLYCOPROTEIN G [id number] 16:42:00* Test Item Value Reference Range Interpretation Comme nts HSV I IgG (test code = 1543481294) Negative Negative HSV II IgG (test code = 2036667944) Negative Negative PATRICIO (test code = PATRICIO) Positive - IgG ant ibody to HSV 1 and/or HSV 2 detected.Negative - No HSV 1 and/or HSV 2 antibody detected.Equivocal - A second sample should be sent. [facility] VAGINAL PATHOGENS BY DNA PROBE 2020-05-25 20:30:00* Test Item Value Reference Range Interpretation Comme nts Trichomonas vaginalis (test code = 3420135306) Negative Negative Gardnerella vaginalis (test code = 3227203420) Positive Negative A The pre sence of Gardnerella vaginalis although suggestive, is not diagnostic of Bacterial Vaginosis. Mercedes species (test code = 4361004076) Negative Negative Lab Interpretation (test code = 90540-7) Abnormal [facility] [id number] 21:42:00* Test Item Value Reference Range Interpretation Comme [facility] HCV Ab (test code = 63470-0) Negative HCV Semi-Quantitative (test code = 37141-0) [facility]-AB WITH [id number] 19:19:00* Test Item Value Reference Range Interpretation Comme nts HIV Semi-quantitative (test code = 36119-5) Negative Negative PATRICIO (test code = PATRICIO) Non-reactive for HIV-1 antigen and HIV-1/HIV-2 antibodies. ?No laboratory evidence of HIV infection. ?Repeat in 2-4 weeks if acute HIV infection is suspected. [facility] SURFACE [id number] 18:58:00 * Test Item Value Reference Range Interpretation Comme nts HBsAg Semi-Quantitative (veena t code = 5195-3) Negative Negative [facility]
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
[2024-11-06] MEDS ORDERED: LIDOCAINE 1% MPF 5 ML VIAL ONE (08:56)
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
[2024-11-06] MEDS ORDERED: HYDROCODONE/APAP 5/325 MG TAB ONE (09:37)
[2024-11-06 12:41] VITALS: BP 117/79; TEMP 98; O2SAT 99
== END 2024-11-06 09:54 | disposition home or self-care (01) ==
LOC: ER 07:28
DX: S01.81XA Laceration without foreign body of other part of head, initial encounter (principal); S80.01XA Contusion of right knee, initial encounter; S40.012A Contusion of left shoulder, initial encounter; V49.49XA Driver injured in collision with other motor vehicles in traffic accident, initial encounter
CPT/HCPCS: 70450; 72125; 73030; 73562; 99283; 12042; J2003